=== PATIENT | female | born 1970 | race Caucasian/White ===

== ENCOUNTER → 2016-06-08 | Outpatient (CLI) | payer OTHER ==
[~2016-06-08] MED LIST: ANTI-DIARRHEAL2 M1 PO; CIPRO PO; HYDROCHLOROTHIA25 MG PO; LISINOPRIL PO; LORTAB 10/500 T1 TAB PO; METRONIDAZOLE PO; PAXIL; PREDNISONE; PRILOSEC; ZOFRAN ODT4 MG PO
--- NOTE | ~2016-06-08 | CR126 ---
[facility]. [facility] A Service of [facility] RADIOLOGY TEXT RESULTS PATIENT: ROSARIO MANCILLA LOCATION: [facility] : 72 UNIT #: [id number] AGE: [address]: Chloé Frank SEX: F ORDER DR: [id number] [place] [id number] O MR#: [id number] Acc #: [id number] NAME: ROSARIO MANCILLA : 1970 SEX: F STUDY DATE/TIME: 06/08/2016 14:46 UNIT: [facility] ROOM: STUDY DESCRIPTION: CR Foot Complete Min 3 View Lt Attending Physician: Chloé Frank A.P.R.N. Referring Physician: Chloé Frank A.P.R.N. Ordering Physician: Chloé Frank A.P.R.N. Primary Care Physician: Chloé Frank A.P.R.N. MEDICAL IMAGING REPORT This report is preliminary unless electronic signature is present. EXAM Left foot 3 views 06/08/2016 HISTORY Left foot pain. Pain in middle of foot for 6 months. No known injury. Left foot swelling. FINDINGS The tarsal, metatarsal, and phalangeal elements are all anatomically normal in position and alignment. There are no articular defects. No fractures or radiopaque foreign bodies in the soft tissues are apparent. IMPRESSION Normal foot. Dictated by... Umer Sosa M.D. THIS IS AN ELECTRONICALLY VERIFIED REPORT Umer Sosa M.D. at 06/10/2016 8:17 AM KRT/to TD: 06/08/2016 22:11 JOB #: [id number] MEDICAL IMAGING REPORT Page 1 of 1
== END | disposition home or self-care (01) ==
LOC: SRAD 14:17
DX: M79.672 Pain in left foot (principal)
CPT/HCPCS: 73630